=== PATIENT | male | born 1980 | race American Indian/Alaskan Native ===

== ENCOUNTER 2019-05-25 23:15 | Emergency (ER) | payer SELFPAY ==
[2019-05-26] MEDS ORDERED: NORCO 5/325 ONE (00:44)
[2019-05-26] MEDS ORDERED: AUGMENTIN 875 MG ONE (00:45)
[2019-05-26] MEDS ORDERED: NORCO 5/325 PO ONE (00:45)
[2019-05-26] MEDS ORDERED: AUGMENTIN 875 MG PO ONE (00:46)
[2019-05-26] MEDS ORDERED: BOOSTRIX IM ONE (00:48)
--- NOTE | 2019-05-26 02:49 | XRay Report ---
RIGHT FOREARM 1 VIEW INDICATION / CLINICAL INFORMATION: dog bite forearm. COMPARISON: None available. FINDINGS: Soft tissue air is seen on the radial side of the mid forearm. No other significant abnormality. Signer Name: Blaine Muller MD FACShadia Signed: 05/26/2019 2:45 AM Workstation Name: [id number]
--- NOTE | 2019-05-26 02:58 | Emergency Department Report ---
ED Animal Bite HPI - General Chief Complaint: Animal Bite Stated Complaint: DOG BITE Time Seen by Provider: 05/26/19 02:02 Source: patient, EMS Mode of arrival: Wheelchair Limitations: No Limitations - History of Present Illness Initial Comments: pt is a 39 y/o aam who presents /p dog bite tonight states he was bitten neighbor dog ,neighbor took dog away prior to police arriving on sceene, pt now with punctur wound to right forearm and left thigh. all bleeding is controlled, pt complains of 5/10 pain , rom intact there is no nerve tendon or muscle d amage, pt is ambulatory to base line per patient rom upper extrem intact there is no numbness no tingling no paralysis MD Complaint: animal bite Onset/Timin -: hour(s) Left: Thigh, Right: Forearm Animal: dog Animal Control Notified: Yes Description: household pet Mechanism: bite Pain Description: sharp Severity scale (0 -10): 5 Context: unprovoked Associated Symptoms: none Treatments Prior to Arrival: irrigation - Related Data Patient Tetanus UTD: No Previous Rx's Medication Instructions Recorded Last Taken Type Amoxicillin/Potassium Clav 1 each PO BID 10 Days #20 tablet 05/26/19 Unknown Rx [Augmentin 875-125 Tablet] Bacitracin/Polymyxin B Sulfate 1 applicatio TP BID 14 Days #1 tube 05/26/19 Unknown Rx [Bacitracin-Polymyxin Ointment] traMADol [Ultram] 50 mg PO Q6HR PRN #12 tablet 05/26/19 Unknown Rx Allergies Allergy/AdvReac Type Severity Reaction Status Date / Time No Known Allergies Allergy Verified 05/25/19 23:23 ED Review of Systems ROS: Stated complaint: DOG BITE Other details as noted in HPI Constitutional: denies: chills, fever Eyes: denies: eye pain, eye discharge, vision change ENT: denies: ear pain, throat pain Respiratory: denies: cough, shortness of breath, wheezing Cardiovascular: denies: chest pain, palpitations Endocrine: no symptoms reported Gastrointestinal: as per HPI Genitourinary: denies: urgency, dysuria Musculoskeletal: as per HPI Skin: lesions (puncture wounds righ forearm and left inner thigh ). denies: rash Neurological: denies: headache, weakness, paresthesias Psychiatric: denies: anxiety, depression Hematological/Lymphatic: as per HPI ED Past Medical Hx - Past Medical History Previous Medical History?: No - Surgical History Past Surgical History?: No - Social History Smoking Status: Current Some Day Smoker - Medications Home Medications: Home Medications Medication Instructions Recorded Confirmed Last Taken Type Amoxicillin/Potassium Clav 1 each PO BID 10 Days #20 tablet 05/26/19 Unknown Rx [Augmentin 875-125 Tablet] Bacitracin/Polymyxin B Sulfate 1 applicatio TP BID 14 Days #1 tube 05/26/19 Unknown Rx [Bacitracin-Polymyxin Ointment] traMADol [Ultram] 50 mg PO Q6HR PRN #12 tablet 05/26/19 Unknown Rx ED Physical Exam - General Limitations: No Limitations General appearance: alert, in no apparent distress - Head Head exam: Present: atraumatic, normocephalic - Eye Eye exam: Present: normal appearance, PERRL, EOMI Pupils: Present: normal accommodation - ENT ENT exam: Present: mucous membranes moist - Neck Neck exam: Present: normal inspection, full ROM. Absent: tenderness, meningismus, lymphadenopathy, thyromegaly - Respiratory Respiratory exam: Present: normal lung sounds bilaterally. Absent: respiratory distress, wheezes, stridor, chest wall tenderness - Cardiovascular Cardiovascular Exam: Present: regular rate, normal rhythm, normal heart sounds. Absent: systolic murmur, diastolic murmur, rubs, gallop - GI/Abdominal GI/Abdominal exam: Present: soft, normal bowel sounds. Absent: distended, tenderness, bruit, hernia - Rectal Rectal exam: Present: deferred - Extremities Exam Extremities exam: Present: normal inspection, full ROM, tenderness (right forearm, left lower extrem ), normal capillary refill. Absent: pedal edema, joint swelling, calf tenderness - Expanded Upper Extremity Exam Right Forearm Wrist exam: Present: full ROM, tenderness, laceration (puncture right forearm x 2 ). Absent: swelling, abrasion, ecchymosis, deformity, crepidus, dislocation, erythema, tenderness over anatomical snuff box, pain with axial thumb loading Hand Wrist exam: Present: normal inspection, full ROM. Absent: tenderness Neuro motor exam: Present: wrist extension intact, thumb opposition intact, thumb IP flexion intact, thumb adduction intact, fingers 2-5 abduction intact Neurosensory exam: Present: 2-point discrimination, radial nerve intact, ulnar nerve intact, median nerve intact Vascular: Present: normal capillary refill, radial pulse, brachial pulse, ulnar pulse. Absent: vascular compromise, pulse deficit radial art, pulse deficit ulnar art, pulse deficit brachial art - Expanded Lower Extremity Exam Left Upper Leg exam: Present: full ROM, laceration (puncture wound dog bite ). Absent: tenderness, swelling, ecchymosis, deformity, crepidus, dislocation, erythema Knee exam: Present: full ROM. Absent: tenderness, swelling Lower Leg exam: Present: normal inspection, full ROM. Absent: tenderness, swelling Ankle exam: Present: full ROM, tenderness. Absent: swelling Foot/Toe exam: Present: normal inspection, full ROM. Absent: tenderness, swelling Neuro vascular tendon exam: Absent: pulse deficit, motor deficit, sensory deficit, tendon deficit, abnormal 2-point discrimination Gait: Positive: observed and normal - Back Exam Back exam: Present: normal inspection, full ROM. Absent: tenderness, CVA tenderness (R), CVA tenderness (L), muscle spasm, paraspinal tenderness, vertebral tenderness, rash noted - Neurological Exam Neurological exam: Present: alert, oriented X3, CN II-XII intact, normal gait, reflexes normal. Absent: motor sensory deficit - Psychiatric Psychiatric exam: Present: normal affect, normal mood - Skin Skin exam: Present: warm, dry, intact, normal color. Absent: rash ED Course Vital Signs 05/26/19 05/26/19 00:33 00:47 Temperature 98.4 F Pulse Rate 68 Respiratory 12 20 Rate Blood Pressure 104/69 O2 Sat by Pulse 99 Oximetry - Reevaluation(s) Reevaluation #1: Ordering Physician: CLAY BERNAL NP Date of Service: 05/26/19 Procedure(s): XR forearm 1V RT Accession Number(s): [id number] cc: CLAY BERNAL NP Fluoro Time In Minutes: RIGHT FOREARM 1 VIEW INDICATION / CLINICAL INFORMATION: dog bite forearm. COMPARISON: None available. FINDINGS: Soft tissue air is seen on the radial side of the mid forearm. No other significant abnormality. Signer Name: Blaine Muller MD FACR Signed: 05/26/2019 2:45 AM Workstation Name: [id number] Transcribed By: MS Dictated By: Blaine Muller MD Electronically Authenticated By: Blaine Muller MD Signed Date/Time: 05/26/19 0245 DD/ 0244 TD/TT: 05/26/19 02:58 - Procedure Description Procedures done: wound irrigation and rabies immonoglubulin injection to left thigh and right forarm dog bite wound, all bleeding is controlled wounds cleaned with betadine solution , immunization given to left deltoid, pt given wound care instructions will follow up health department for completion of rabies series,pt will follow up with pcp in 2 dys for wound check all bleeding is controlled steril dressing intact. Critical care attestation.: If time is entered above; I have spent that time in minutes in the direct care of this critically ill patient, excluding procedure time. ED Disposition Clinical Impression: Dog bite of arm Qualifiers: Encounter type: initial encounter Laterality: right Qualified Code(s): S41.151A - Open bite of right upper arm, initial encounter; W54.0XXA - Bitten by dog, initial encounter Dog bite of left thigh Qualifiers: Encounter type: initial encounter Qualified Code(s): S71.152A - Open bite, left thigh, initial encounter; W54.0XXA - Bitten by dog, initial encounter Disposition: - TO HOME OR SELFCARE Is pt being admited?: No Does the pt Need Aspirin: No Condition: Stable Instructions: Animal Bite (ED), Rabies Vaccine (Injection), Rabies Immune Globulin (Injection) Additional Instructions: follow up with [facility] Department in 2 days rabbies vaccination series completion and wound check. return to ed if symptoms worsen. Prescriptions: Amoxicillin/Potassium Clav [Augmentin 875-125 Tablet] 1 each PO BID 10 Days #20 tablet Bacitracin/Polymyxin B Sulfate [Bacitracin-Polymyxin Ointment] 1 applicatio TP BID 14 Days #1 tube traMADol [Ultram] 50 mg PO Q6HR PRN #12 tablet PRN Reason: Pain Forms: Work/School Release Form(ED) Time of Disposition: 04:21
[2019-05-26] MEDS ORDERED: ZOFRAN IM ONE (03:15)
[2019-05-26] MEDS ORDERED: MORPHINE IM ONE (03:15)
[2019-05-26] MEDS ORDERED: RABAVERT RABIES VACCINE(PCEC) IM ONE (03:16)
[2019-05-26 04:47] VITALS: BP 114/53
== END 2019-05-26 04:30 | disposition home or self-care (01) ==
LOC: ED 23:15
DX: S41.151A Open bite of right upper arm, initial encounter (principal); S71.152A Open bite, left thigh, initial encounter; F17.200 Nicotine dependence, unspecified, uncomplicated; Z79.899 Other long term (current) drug therapy
CPT/HCPCS: 73090; 90375; 90471; 90472; 90675; 90715; 96372; 99284; J2270; J2405

== ENCOUNTER 2019-06-04 19:23 | Emergency (ER) | payer SELFPAY ==
--- NOTE | 2019-06-04 19:58 | Emergency Department Report ---
Blank Doc - Documentation Documentation: This is a 39-year-old male that presents with tingling and numbness sensation to the area where he was bitten by a dog last month. This initial assessment/diagnostic orders/clinical plan/treatment(s) is/are subject to change based on patient's health status, clinical progression and re- assessment by fellow clinical providers in the ED. Further treatment and workup at subsequent clinical providers discretion. Patient/guardians urged not to elope from the ED as their condition may be serious if not clinically assessed and managed. Initial orders include: 1- Patient sent to [facility] for further evaluation and treatment
[2019-06-04 20:00] VITALS: BP 117/76
[2019-06-04 22:17] LABS: Basophils % (Auto) 0.8 % (0.0-1.8); Eosinophils # (Auto) 0.2 K/mm3 (0.0-0.4); Eosinophils % (Auto) 2.8 % (0.0-4.3); Hematocrit 42.8 % (35.5-45.6); Hemoglobin 14.2 gm/dl (11.8-15.2); Lymphocytes # (Auto) 1.5 K/mm3 (1.2-5.4); Lymphocytes % (Auto) 27.1 % (13.4-35.0); Mean Corpuscular HGB Conc 33 % (32-34); Mean Corpuscular Volume 87 fl (84-94); Monocytes # (Auto) 0.6 K/mm3 (0.0-0.8); Monocytes % (Auto) 10.4 % (0.0-7.3); Platelet Count 247 K/mm3 (140-440); Red Blood Count 4.93 M/mm3 (3.65-5.03); Red Cell Distribution Width 13.1 % (13.2-15.2)
[2019-06-04 22:26] LABS: BUN/Creatinine Ratio 15; Blood Urea Nitrogen 12 mg/dL (9-20); Calcium 9.3 mg/dL (8.4-10.2); Hemolysis Index 5
--- NOTE | 2019-06-04 22:43 | Emergency Department Report ---
ED General Adult HPI - General Chief complaint: Animal Bite Stated complaint: DOG BITE Time Seen by Provider: 06/04/19 19:56 Source: patient Mode of arrival: Ambulatory Limitations: No Limitations - History of Present Illness Initial comments: This is a 39-year-old male that presents with tingling and numbness sensation to the area where he was bitten by a dog last month. Dog bite to left anterior thigh 1 month ago patient treated with Augmentin received initial rabies immunization and immunoglobulin in the ED states numbness and tingling to the bite site patient states he did complete rabies vaccination patient denies weakness patient is ambulatory to baseline is normal range of motion to extremity. Onset/Timin -: month(s) Location: lower extremity Radiation: extremity Severity scale (0 -10): 4 Quality: other (tinglling numbness ) Consistency: constant Improves with: none Worsens with: none Associated Symptoms: other (tingling numbness ) Treatments Prior to Arrival: none - Related Data Previous Rx's Medication Instructions Recorded Last Taken Type Amoxicillin/Potassium Clav 1 each PO BID 10 Days #20 tablet 05/26/19 Unknown Rx [Augmentin 875-125 Tablet] Bacitracin/Polymyxin B Sulfate 1 applicatio TP BID 14 Days #1 tube 05/26/19 Unknown Rx [Bacitracin-Polymyxin Ointment] traMADol [Ultram] 50 mg PO Q6HR PRN #12 tablet 05/26/19 Unknown Rx Allergies Allergy/AdvReac Type Severity Reaction Status Date / Time No Known Allergies Allergy Verified 05/25/19 23:23 ED Review of Systems ROS: Stated complaint: DOG BITE Other details as noted in HPI Constitutional: denies: chills, fever Eyes: denies: eye pain, eye discharge, vision change ENT: denies: ear pain, throat pain Respiratory: denies: cough, shortness of breath, wheezing Cardiovascular: denies: chest pain, palpitations Endocrine: no symptoms reported Gastrointestinal: denies: abdominal pain, nausea, diarrhea Genitourinary: denies: urgency, dysuria Musculoskeletal: denies: back pain, joint swelling, arthralgia Skin: denies: rash, lesions Neurological: denies: headache, weakness, numbness, paresthesias, confusion, abnormal gait, vertigo Psychiatric: denies: anxiety, depression Hematological/Lymphatic: denies: easy bleeding, easy bruising ED Past Medical Hx - Past Medical History Previous Medical History?: No - Surgical History Past Surgical History?: No - Social History Smoking Status: Current Some Day Smoker Substance Use Type: Alcohol - Medications Home Medications: Home Medications Medication Instructions Recorded Confirmed Last Taken Type Amoxicillin/Potassium Clav 1 each PO BID 10 Days #20 tablet 05/26/19 Unknown Rx [Augmentin 875-125 Tablet] Bacitracin/Polymyxin B Sulfate 1 applicatio TP BID 14 Days #1 tube 05/26/19 Unknown Rx [Bacitracin-Polymyxin Ointment] traMADol [Ultram] 50 mg PO Q6HR PRN #12 tablet 05/26/19 Unknown Rx ED Physical Exam - General Limitations: No Limitations General appearance: alert, in no apparent distress - Head Head exam: Present: atraumatic, normocephalic - Eye Eye exam: Present: normal appearance, PERRL, EOMI Pupils: Present: normal accommodation - ENT ENT exam: Present: mucous membranes moist - Neck Neck exam: Present: normal inspection - Respiratory Respiratory exam: Present: normal lung sounds bilaterally. Absent: respiratory distress, wheezes, stridor, chest wall tenderness - Cardiovascular Cardiovascular Exam: Present: regular rate, normal rhythm, normal heart sounds. Absent: systolic murmur, diastolic murmur, rubs, gallop - GI/Abdominal GI/Abdominal exam: Present: soft, normal bowel sounds. Absent: distended, tenderness, bruit, hernia - Rectal Rectal exam: Present: deferred - Extremities Exam Extremities exam: Present: normal inspection, full ROM, tenderness (left inner thigh dog bite site no mild erythema no drainage ), normal capillary refill. Absent: pedal edema, joint swelling, calf tenderness - Expanded Lower Extremity Exam Left Upper Leg exam: Present: full ROM, tenderness, erythema (left inner thigh no drainage no swelling no deformity ). Absent: swelling, abrasion, laceration, ecchymosis, deformity, crepidus, dislocation Knee exam: Present: full ROM. Absent: tenderness Lower Leg exam: Present: normal inspection, full ROM. Absent: tenderness Ankle exam: Present: normal inspection, full ROM. Absent: tenderness Foot/Toe exam: Present: full ROM. Absent: tenderness, swelling Neuro vascular tendon exam: Absent: pulse deficit, motor deficit, sensory deficit, tendon deficit Gait: Positive: observed and normal - Back Exam Back exam: Present: normal inspection, full ROM. Absent: tenderness, CVA tenderness (R), CVA tenderness (L), muscle spasm, paraspinal tenderness, vertebral tenderness, rash noted - Neurological Exam Neurological exam: Present: alert, oriented X3 - Psychiatric Psychiatric exam: Present: normal affect, normal mood - Skin Skin exam: Present: warm, dry, intact, normal color. Absent: rash ED Course Vital Signs 06/04/19 19:58 Temperature 98.6 F Pulse Rate 78 Respiratory 18 Rate Blood Pressure 117/76 O2 Sat by Pulse 99 Oximetry ED Medical Decision Making - Lab Data Result diagrams: 06/04/19 21:51 06/04/19 21:51 Labs 06/04/19 06/04/19 21:51 21:51 WBC 5.6 RBC 4.93 Hgb 14.2 Hct 42.8 MCV 87 MCH 29 MCHC 33 RDW 13.1 L Plt Count 247 Lymph % (Auto) 27.1 Boyle % (Auto) 10.4 H Eos % (Auto) 2.8 Baso % (Auto) 0.8 Lymph # 1.5 Boyle # 0.6 Eos # 0.2 Baso # 0.0 Seg Neutrophils % 58.9 Seg Neutrophils # 3.3 Sodium 145 Potassium 3.9 Chloride 107.2 H Carbon Dioxide 28 Anion Gap 14 BUN 12 Creatinine 0.8 Estimated GFR > 60 BUN/Creatinine Ratio 15 Glucose 136 H Calcium 9.3 - Medical Decision Making this is injury site pain rom intact no symptoms of infection no weakness no distal pulses intact, plan follow up with orthopedics in 2-3 days return to emergency if symptoms worsen. Critical care attestation.: If time is entered above; I have spent that time in minutes in the direct care of this critically ill patient, excluding procedure time. ED Disposition Clinical Impression: Paresthesia Thigh pain Qualifiers: Laterality: left Qualified Code(s): M79.652 - Pain in left thigh Disposition: DC-01 TO HOME OR SELFCARE Is pt being admited?: No Does the pt Need Aspirin: No Condition: Stable Instructions: Paresthesia (ED) Referrals: OFELIA CHAUDHARI MD [Primary Care Provider] - 3-5 Days ALLEN PHILLIP MD [Staff Physician] - 3-5 Days Forms: Work/School Release Form(ED) Time of Disposition: 22:51
== END 2019-06-04 23:05 | disposition home or self-care (01) ==
LOC: ED 19:23
DX: R20.2 Paresthesia of skin (principal); M79.652 Pain in left thigh; F17.200 Nicotine dependence, unspecified, uncomplicated
CPT/HCPCS: 36415; 80048; 85025; 99283